=== PATIENT | female | born 1995 | race Caucasian/White ===

== ENCOUNTER → 2017-11-23 | Outpatient (CLI) | END | disposition home or self-care (01) ==

== ENCOUNTER 2018-04-04 11:55 | Outpatient (CLI) | payer BC, OTHER ==
[~2018-04-04] VITALS: Ht 157.5 cm; Wt 67.8 kg
[2018-04-04 12:07] VITALS: Ht 157.5 cm; Wt 67.8 kg
[2018-04-04] MEDS ORDERED: PREN-93 PO (12:07)
[2018-04-04 12:08] VITALS: BP 115/66; PULSE 88; RESP 18
[2018-04-04] MEDS ORDERED: ONDANSETRON 4 MG INJ IV PRN (12:30)
[2018-04-04] MEDS ORDERED: TERBUTALINE 1 MG/ML INJ SC ONE (12:30)
[2018-04-04] MEDS ORDERED: LOPERAMIDE 2 MG CAP PO PRN (12:30)
[2018-04-04] MEDS ORDERED: LOPERAMIDE 2 MG CAP PO ONE (12:30)
[2018-04-04] MEDS ORDERED: DEXTROSE 5%-0.45% NACL 1,000 ML IV SCH (12:30)
--- NOTE | 2018-04-04 15:55 | PN ---
Triage Information Date/Time April 04, 2018 Reason for visit: Patient admitted complaining of 1 day history of nausea vomiting and diarrhea which apparently happened after ingestion of strange food also complaining of minimal uterine contractions Weeks of Gestation 27 weeks and 6 days /Para 1 para 0 Diabetes: none Objective Vital Signs Date Temp Pulse Resp B/P (MAP) Pulse Ox O2 O2 Flow FiO2 Time Delivery Rate 04/04/18 98.2 88 18 115/66 Room Air 12:08 (82) Heart Rate: 150's Heart Rate Comments Reactive Contractions: 6-10 Minutes Apart Exam Cervix appeared long and closed Results/Medications Result Diagram: 04/04/18 1249 04/04/18 1249 Results 24 hrs Laboratory Tests Test 04/04/18 12:00 04/04/18 12:49 Urine Color YELLOW Urine Clarity SLIGHTLY CLOUDY A Urine pH 5.0 Urine Specific [place] 1.028 Urine Ketones NEGATIVE Urine Nitrite NEGATIVE Urine Bilirubin NEGATIVE Urine Urobilinogen NEGATIVE Urine Leukocyte Esterase NEGATIVE Urine Microscopic RBC 1 Urine Microscopic WBC 2 Urine Squamous Epithelial Cells FEW Urine Mucus MODERATE Urine Hemoglobin NEGATIVE Urine Glucose NEGATIVE Urine Total Protein 1+ H White Blood Count 10.3 Red Blood Count 3.92 L Hemoglobin 12.2 Hematocrit 35.0 L Mean Corpuscular Volume 89.3 Mean Corpuscular Hemoglobin 31.1 Mean Corpuscular Hemoglobin Concent 34.9 Red Cell Distribution Width 12.8 Platelet Count 199 Mean Platelet Volume 10.5 H Immature Granulocytes % 0.500 H Neutrophils % 84.5 H Lymphocytes % 7.6 L Monocytes % 7.0 Eosinophils % 0.3 Basophils % 0.1 Nucleated Red Blood Cells % 0.0 Immature Granulocytes # 0.050 H Neutrophils # 8.7 H Lymphocytes # 0.8 Monocytes # 0.7 Eosinophils # 0.0 Basophils # 0.0 Nucleated Red Blood Cells # 0.0 Sodium Level 134 L Potassium Level 3.7 Chloride Level 103 Carbon Dioxide Level 22 Anion Gap 9 Blood Urea Nitrogen 10 Creatinine 0.48 Est Glomerular Filtrat Rate mL/min > 60 Glucose Level 74 Calcium Level 8.9 Total Bilirubin 0.4 Direct Bilirubin 0.00 Indirect Bilirubin 0.4 Aspartate Amino Transf (AST/SGOT) 19 Alanine Aminotransferase (ALT/SGPT) 10 L Alkaline Phosphatase 113 Total Protein 7.1 Albumin 3.8 Globulin 3.30 H Albumin/Globulin Ratio 1.15 Medications Current Medications Dextrose/Sodium Chloride 1,000 ml @ 150 mls/hr Q6H40M IV Last administered on 04/04/18at 13:00; Admin Dose 150 MLS/HR; Start 04/04/18 at 12:30 Ondansetron HCl (Zofran Inj) 4 mg Q6H PRN IV NAUSEA AND/OR VOMITING; Start 04/04/18 at 12:30 Loperamide HCl (Imodium Cap) 2 mg QID PRN PO DIARRHEA; Start 04/04/18 at 12:30 Imaging Results 1. Single live intrauterine fetus, cephalic presentation, unchanged. The heart rate is 148 bpm. 2. Posterior placenta, grade 1, no previa or abruptio is evident. 3. Amniotic fluid index 14.2 cm. 4. The cervix is closed and measures 3.4 cm in length. 5. Biophysical profile score: 8/8. 1. Single live intrauterine fetus, cephalic presentation. 2. Posterior placenta, grade 1, no previa or abruptio is evident. 3. Estimated age by ultrasound: 29 weeks 3 days plus or minus 2 weeks. The estimated weight is 1201 g. The EFW falls at 54%. There has been adequate growth since the previous scan. The estimated date of delivery based on today's sonogram is 06/17/2018. Disposition: Discharge Assessment/Plan After almost a liter of IV hydration receiving Zofran and Imodium patient's symptoms were totally disappeared Was discharged home and recommended to refer back to OB triage in case there is a recurrence of symptoms PHILIPPE DIXON MD Apr 04, 2018 15:55
--- NOTE | 2018-04-04 16:10 | TRIAGE ---
OB Triage Datetime Report Generated by CPN: 04/04/2018 16:10 Datetime: 04/04/2018 15:00 Stage of : OB Triage Maternal Assessment Level of Consciousness: Fully Conscious Labor Evaluation Frequency: NONE Monitor Mode: External Resting Tone [place]: Relaxed Heart Rate FHR Baseline Rate: 145 Monitor Mode: External US Variability: Moderate 6-25 bpm Accelerations: 15X15 Decelerations: None Category: Category I Pain Assessment Pain Scale: 0 Pain Goal: 3 Vaginal Exam Membrane Status: Intact Vaginal Bleeding: None Datetime: 04/04/2018 14:00 Stage of : OB Triage Maternal Assessment Level of Consciousness: Fully Conscious Labor Evaluation Frequency: OCCASIONAL Monitor Mode: External Duration (sec)2399: 30-50 Quality: Mild Resting Tone [place]: Relaxed Heart Rate FHR Baseline Rate: 145 Monitor Mode: External US Variability: Moderate 6-25 bpm Accelerations: 15X15 Decelerations: None Category: Category I Pain Assessment Pain Scale: 0 Pain Goal: 3 Vaginal Exam Membrane Status: Intact Vaginal Bleeding: None Datetime: 04/04/2018 13:00 Stage of : OB Triage Maternal Assessment Level of Consciousness: Fully Conscious Labor Evaluation Frequency: IRREGULAR Monitor Mode: External Duration (sec)2399: 30 Quality: Mild Resting Tone [place]: Relaxed Heart Rate FHR Baseline Rate: 145 Monitor Mode: External US Variability: Moderate 6-25 bpm Accelerations: 15X15 Decelerations: None Category: Category I Pain Assessment Pain Scale: 0 Pain Goal: 3 Vaginal Exam Membrane Status: Intact Vaginal Bleeding: None Datetime: 04/04/2018 12:04 Assessment Type: Triage Maternal Assessment Level of Consciousness: Fully Conscious DTR's/Clonus: DTRs 2+; No Clonus Headache: Denies Blurred Vision: No Respiratory Effort: Unlabored; Regular Rhythm; Equal Expansion Breath Sounds, Left: Clear and Equal Breath Sounds, Right: Clear and Equal Nausea/Vomiting: Denies RUQ Epigastric Pain: Denies Lower Extremities Edema: None Degree: None Upper Extremities Edema: None Degree: None Facial Edema: None Fall Risk Assessment History of Falling: (0) No Secondary Diagnosis: (0) No Ambulatory Aid: (0) Bedrest/Nurse Assist IV Therapy: (0) No Gait: (0) Normal/Bedrest/Immobile Mental Status: (0) Oriented to Own Ability Fall Score: 0 Fall Risk Score Definition: No Risk: No action required Datetime: 04/04/2018 12:02 Time of Arrival: 04/04/2018 11:48 EGA: 27.6 Arrived By: Ambulatory Arrived From: Home Chief Complaint: PT. HERE C/O N/V/D Movement: Present Contractions: Denies/Absent Rupture of Membranes: Denies Vaginal Bleeding: None Vaginal Discharge: Denies Recent Sexual Intercouse: Denies Abdominal Trauma: Not Applicable Patient Complaints: Nausea; Vomiting Time Provider Notified: 04/04/2018 12:15 Provider Notified: CONNIE Initial Plan: CBC/CMP/UA/TERB/CVL/BPP/ZOFRAN/IV HYDRATION/ Datetime: 04/04/2018 12:01 Monitor Mode: External Monitor Mode: External US
== END 2018-04-04 16:00 | disposition home or self-care (01) ==
LOC: L-D 11:55 → OBT 11:55
PROVIDERS: ATTEND Obstetrics & Gynecology
DX: O21.0 Mild hyperemesis gravidarum (principal); O62.9 Abnormality of forces of labor, unspecified; Z3A.27 27 weeks gestation of pregnancy
CPT/HCPCS: 36415; 76815; 76817; 76818; 80053; 81001; 85025; 96360; 96361; 96372; J3105; J7042; Z7500; Z7610; G0463

== ENCOUNTER 2018-06-27 02:25 | Outpatient (CLI) | payer OTHER ==
[~2018-06-27] VITALS: Ht 157.5 cm; Wt 76.3 kg
[~2018-06-27 02:25] MED LIST: PREN-93 PO
[2018-06-27 02:38] VITALS: BP 113/61; PULSE 61
[2018-06-27 03:02] VITALS: Ht 157.5 cm; Wt 76.3 kg
--- NOTE | 2018-06-27 03:56 | PN ---
Triage Information Date/Time Reason for visit: Uterine contractions Weeks of Gestation Patient is a 22-year-old 1 para 0 at 39 weeks and 6 days of gestation with estimated date of delivery June 28, 2018 Patient presents with chief complaint of uterine contractions She reports positive movement, denies vaginal bleeding or leaking fluid /Para 1 para 0 Diabetes: none Hypertention: none Objective Vital Signs Date Temp Pulse Resp B/P (MAP) Pulse Ox O2 O2 Flow FiO2 Time Delivery Rate 06/27/18 97.9 61 113/61 Room Air 02:38 (78) Heart Rate: 140's Heart Rate Comments heart rate tracing category 1 Contractions: < 5 Minutes Apart Exam Cervix closed per nurse Results/Medications Imaging Results PROCEDURE: US OB biophysical profile. CLINICAL INDICATION: well-being TECHNIQUE: Multiple sonographic images of the pelvis were obtained. The images were reviewed on a PACS workstation. COMPARISON: US 06/15/2018; US PELVIS 04/04/2018 FINDINGS: Single live intrauterine gestation. YESI = 10.02 cm. Cardiac activity is present with 143 beats per minute. Cephalic presentation. Placental location is right lateral, grade III. Biophysical profile as follows: movement 2/2 tone 2/2 breathing 2/2 YESI 2/2 Total 10/20 IMPRESSION: Biophysical profile 10/20. RPTAT: [facility] Physician Andrews Time Electronically viewed and signed by Physician Andrews on 06/27/2018 04:13 xB/ CC: PHILIPPE DIXON MD [phone] Disposition: Discharge Assessment/Plan kick count instructions were given Labor precautions were given Patient instructed to return tomorrow June 28, 2018 for repeat NST and BPP Patient is planned for induction on 06/30/2018 Copies To: CC: PHILIPPE DIXON MD ; BECKY MORATAYA MD Jun 27, 2018 03:56
[2018-06-27] MEDS ORDERED: FER325 PO (04:17)
--- NOTE | 2018-06-27 04:40 | TRIAGE ---
OB Triage Datetime Report Generated by CPN: 06/27/2018 04:39 Datetime: 06/27/2018 04:20 Labor Evaluation Frequency: irregular Monitor Mode: External Duration (sec)2399: 60-110 Quality: Mild Pattern: Normal: <= 5 Contractions in 10 Minutes Resting Tone [place]: Relaxed Heart Rate FHR Baseline Rate: 115 Variability: Moderate 6-25 bpm Accelerations: 15X15 Decelerations: None Category: Category I Pain Assessment Pain Scale: 5 Pain Presence: Intermittent Pain Type: Contraction Pain Location: Abdomen; Back Pain Relief Measures: Comfort Measures Pain Assessment Comments: no change in pain level Datetime: 06/27/2018 03:23 Labor Evaluation Frequency: 3-7 Monitor Mode: External Duration (sec)2399: 60-110 Quality: Mild Pattern: Normal: <= 5 Contractions in 10 Minutes Resting Tone [place]: Relaxed Heart Rate FHR Baseline Rate: 115 Monitor Mode: External US Variability: Moderate 6-25 bpm Accelerations: 15X15 Decelerations: None Category: Category I Datetime: 06/27/2018 03:15 Vaginal Exam Dilatation (cms): 0.0 Effacement (%): 0 Station: -2 Exam By: Miquel HERNANDEZTRISTA Membrane Status: Intact Vaginal Bleeding: None Cervix, Position: Posterior Presentation 'A': Cephalic Datetime: 06/27/2018 03:04 Time of Arrival: 06/27/2018 02:22 EGA: 39.6 Arrived From: Home Chief Complaint: UC'S SINCE 06/26 LOSS MUCUS PLUG Movement: Present Contractions: Irregular Time Contractions Began: 06/26/2018 23:00 Rupture of Membranes: Denies Vaginal Bleeding: None Vaginal Discharge: Present Recent Sexual Intercouse: Denies Abdominal Trauma: Not Applicable Patient Complaints: Contractions Time Provider Notified: 06/27/2018 03:24 Provider Notified: Cristian Initial Plan: VS, EFM, SVE, CALL OB BPP w/YESI Datetime: 06/27/2018 02:53 Stage of : OB Triage Maternal Assessment Level of Consciousness: Fully Conscious DTR's/Clonus: DTRs 2+; No Clonus Headache: Denies Blurred Vision: No Respiratory Effort: Unlabored; Regular Rhythm; Equal Expansion Breath Sounds, Left: Clear and Equal Breath Sounds, Right: Clear and Equal Nausea/Vomiting: Denies RUQ Epigastric Pain: Denies Lower Extremities Edema: None Degree: None Upper Extremities Edema: None Degree: None Facial Edema: None Temperature Route: Oral Fall Risk Assessment History of Falling: (0) No Secondary Diagnosis: (0) No Ambulatory Aid: (0) Bedrest/Nurse Assist IV Therapy: (0) No Gait: (0) Normal/Bedrest/Immobile Mental Status: (0) Oriented to Own Ability Fall Score: 0 Fall Risk Score Definition: No Risk: No action required Pain Assessment Pain Scale: 5 Pain Presence: Intermittent Pain Type: Contraction Pain Location: Abdomen; Back Pain Relief Measures: Comfort Measures Datetime: 06/27/2018 02:40 Stage of : OB Triage Monitor Mode: External Monitor Mode: External US Datetime: 06/27/2018 02:38 Stage of : OB Triage Datetime: 04/04/2018 16:00 Stage of : OB Triage Maternal Assessment Level of Consciousness: Fully Conscious Labor Evaluation Frequency: 1UC/HR Monitor Mode: External Duration (sec)2399: 60 Quality: Mild Resting Tone [place]: Relaxed Heart Rate FHR Baseline Rate: 145 Monitor Mode: External US Variability: Moderate 6-25 bpm Accelerations: 15X15 Decelerations: None Category: Category I Pain Assessment Pain Scale: 0 Pain Goal: 3 Membrane Status: Intact Vaginal Bleeding: None Datetime: 04/04/2018 12:04 Fall Score: 0 Fall Risk Score Definition: No Risk: No action required Datetime: 04/04/2018 12:02 EGA: 27.6
== END 2018-06-27 04:28 | disposition home or self-care (01) ==
LOC: OBT 02:25 → L-D 02:25 → OBT 04:28
PROVIDERS: ATTEND Obstetrics & Gynecology
DX: O62.9 Abnormality of forces of labor, unspecified (principal); Z3A.39 39 weeks gestation of pregnancy
CPT/HCPCS: 76818; Z7500; G0463

== ENCOUNTER 2018-06-27 20:23 | Inpatient (IN) | payer OTHER ==
[~2018-06-27] VITALS: Ht 157.5 cm; Wt 75.0 kg
[~2018-06-27 20:23] MED LIST changes: +FER325 PO
[2018-06-27 20:41] VITALS: Ht 157.5 cm; Wt 75.0 kg
[2018-06-27 20:42] VITALS: BP 129/69; PULSE 81; RESP 18
[2018-06-27] MEDS ORDERED: IBUPROFEN 600 MG TAB PO PRN (21:00)
[2018-06-27] MEDS ORDERED: MISOPROSTOL 200 MCG TAB PR PRN (21:00)
[2018-06-27] MEDS ORDERED: CARBOPROST 250 MCG INJ IM PRN (21:00)
[2018-06-27] MEDS ORDERED: OXYTOCIN 30 UNITS/LR 500 ML IV SCH ×2 (21:00)
[2018-06-27] MEDS ORDERED: LIDOCAINE 1% (MPF) 30 ML INJ INJ PRN (21:00)
[2018-06-27] MEDS ORDERED: METHYLERGONOVINE 0.2 MG INJ IM PRN (21:00)
[2018-06-27] MEDS ORDERED: BUTORPHANOL 2 MG INJ IV PRN (21:00)
[2018-06-27] MEDS ORDERED: BUTORPHANOL 1 MG INJ IV PRN (21:00)
[2018-06-27] MEDS ORDERED: OXYTOCIN 30 UNITS/LR 500 ML IV PRN ×2 (21:00)
--- NOTE | 2018-06-27 21:03 | TRIAGE ---
OB Triage Datetime Report Generated by CPN: 06/27/2018 21:03 Datetime: 06/27/2018 20:35 Stage of : OB Triage Labor Evaluation Frequency: 2-3 Monitor Mode: External Duration (sec)2399: 40-80 Pattern: Normal: <= 5 Contractions in 10 Minutes Resting Tone [place]: Relaxed Heart Rate FHR Baseline Rate: 130 Monitor Mode: External US Variability: Moderate 6-25 bpm Accelerations: 15X15 Decelerations: None Category: Category I Vaginal Exam Dilatation (cms): 3.0 Effacement (%): 90 Station: -1 Exam By: GKgagandeepman, RN Membrane Status: Bulging Datetime: 06/27/2018 20:29 Stage of : OB Triage Assessment Type: Triage Maternal Assessment Level of Consciousness: Fully Conscious DTR's/Clonus: DTRs 2+; No Clonus Headache: Denies Blurred Vision: No Respiratory Effort: Unlabored; Regular Rhythm; Equal Expansion Breath Sounds, Left: Clear and Equal Breath Sounds, Right: Clear and Equal Nausea/Vomiting: Denies RUQ Epigastric Pain: Denies Lower Extremities Edema: None Degree: None Upper Extremities Edema: None Degree: None Facial Edema: None Temperature Route: Oral Fall Risk Assessment History of Falling: (0) No Secondary Diagnosis: (0) No Ambulatory Aid: (0) Bedrest/Nurse Assist IV Therapy: (0) No Gait: (0) Normal/Bedrest/Immobile Mental Status: (0) Oriented to Own Ability Fall Score: 0 Fall Risk Score Definition: No Risk: No action required Monitor Mode: External Monitor Mode: External US Pain Assessment Pain Scale: 9 Pain Presence: Intermittent Pain Type: Contraction Pain Location: Abdomen; Back Pain Goal: 2 Pain Relief Measures: Comfort Measures Datetime: 06/27/2018 20:28 Time of Arrival: 06/27/2018 20:13 EGA: 39.6 Arrived By: Ambulatory Arrived From: Home Movement: Present Contractions: Regular Time Contractions Began: 06/27/2018 06:00 Contractions: 3-5 Rupture of Membranes: Denies Vaginal Bleeding: Normal Show Vaginal Discharge: Denies Recent Sexual Intercouse: Denies Abdominal Trauma: Not Applicable Patient Complaints: Contractions Time Provider Notified: 06/27/2018 20:54 Provider Notified: Reiche Initial Plan: VS, EFM, SVE Datetime: 06/27/2018 03:04 EGA: 39.6 Datetime: 06/27/2018 02:53 Fall Score: 0 Fall Risk Score Definition: No Risk: No action required Datetime: 04/04/2018 12:04 Fall Score: 0 Fall Risk Score Definition: No Risk: No action required Datetime: 04/04/2018 12:02 EGA: 27.6
[2018-06-27 21:22] VITALS: BP 121/77; PULSE 73; RESP 19
[2018-06-27] MEDS ORDERED: LACTATED RINGER'S 1,000 ML IV PRN (21:28)
[2018-06-27] MEDS ORDERED: MINERAL OIL LIGHT 10 ML VIAL TOP PRN (21:30)
[2018-06-27] MEDS: LACTATED RINGER'S 1,000 ML IV SCH (22:17)
--- NOTE | 2018-06-27 22:37 | PREAC ---
Date/Time of Note Date/Time of Note DATE: 06/27/18 TIME: 22:35 Anesthesia Eval and Record Evaluation Time Pre-Procedure Interview DATE: 06/27/18 TIME: 22:35 Age 22 Sex female NPO: 8 hrs Preoperative diagnosis IUP Planned procedure L&D Epidural Past Medical History Past Medical History: None Surgery & Anesthesia Issues No known issue Meds Anticoagulation: No Beta [place] within 24 hr: No Reason Beta Lima not given: Pt. not on B-Lima Reported Medications Ferrous Sulfate* (Ferrous Sulfate*) 325 Mg Tabec, 325 MG PO DAILY, TAB 06/27/18 Vit No.124/Iron/FA ( Vitamin Tablet) 1 Each Tablet, 1 EACH PO DAILY, TAB 04/04/18 Current Medications Butorphanol Tartrate (Stadol) 1 mg Q2H PRN IV .PAIN; Start 06/27/18 at 21:00 Butorphanol Tartrate (Stadol) 2 mg Q2H PRN IV .PAIN; Start 06/27/18 at 21:00 Lidocaine (Xylocaine 1% (Mpf)) 30 ml ONCE PRN INJ .EPISIOTOMY; Start 06/27/18 at 21:00 Oxytocin/Lactated Ringer's 500 ml @ 500 mls/hr ONCE POST IV ; Start 06/27/18 at 21:00 Oxytocin/Lactated Ringer's 500 ml @ 125 mls/hr POST IV ; Start 06/27/18 at 21:00 Ibuprofen (Motrin) 600 mg ONCE PRN PO .PAIN 1-5; Start 06/27/18 at 21:00 Oxytocin/Lactated Ringer's 500 ml @ 0 mls/hr ONCE PRN IV .VAGINAL BLEEDING; Start 06/27/18 at 21:00 Methylergonovine Maleate (Methergine) 0.2 mg ONCE PRN IM .VAGINAL BLEEDING; Start 06/27/18 at 21:00 Carboprost Tromethamine (Hemabate) 250 mcg ONCE PRN IM .VAGINAL BLEEDING; Start 06/27/18 at 21:00 Misoprostol (Cytotec) 1,000 mcg ONCE PRN MO .VAGINAL BLEEDING; Start 06/27/18 at 21:00 Oxytocin/Lactated Ringer's 500 ml @ 0 mls/hr FOR AUGMENTATION PRN IV labor augmentation; Start 06/27/18 at 21:00 Lactated Ringer's 1,000 ml @ 125 mls/hr Q8H IV Last administered on 06/27/18at 22:17; Admin Dose 125 MLS/HR; Start 06/27/18 at 21:28 Lactated Ringer's 1,000 ml @ 2,000 mls/hr Q30M PRN IV .ANESTHESIA Last administered on 06/27/18at 21:49; Admin Dose 2,000 MLS/HR; Start 06/27/18 at 21:28 Mineral Oil (Muri-Lube) 10 ml PRN PRN TOP DELIVERY LUBRICATION; Start 06/27/18 at 21:30 Meds reviewed: Yes Allergies Coded Allergies: No Known Allergy (Unverified , 06/27/18) Allergies Reviewed: Yes Labs/Studies Labs Reviewed: Reviewed by anesthesiologist Result Diagram: 06/27/182114 Laboratory Tests 06/27/18 21:15 Blood Bank Test 06/27/18 21:15 Blood Type O POSITIVE Rh Immune Globulin Candidate NO test: Positive Studies: ECG Pre-procedure Exam Last vitals Vital Signs Date Temp Pulse Resp B/P (MAP) Pulse Ox O2 O2 Flow FiO2 Time Delivery Rate 06/27/18 98.1 73 19 121/77 Room Air 21:22 (92) Airway: Adequate mouth opening, Adequate thyromental dist Mallampati: Mallampati II Teeth: Normal Lung: Normal Heart: Normal ASA Physical Status ASA physical status: 2 Emergency: None Planned Anesthetic Neuraxial: Epidural Planned Pain Management Epidural Pre-operative Attestations Prior to commencing anesthesia and surgery, the patient was re-evaluated, there was verification of: *The patient's identity *The results of appropriate recent lab work and preoperative vital signs *The above evaluation not changing prior to induction *Anesthetic plan, risk benefits, alternative and complications discussed with patient/family; questions answered; patient/family understands, accepts and wishes to proceed. LUIS MANUEL MONTANA MD Jun 27, 2018 22:37
[2018-06-27] MEDS ORDERED: FENTAnyl 2MCG/ML-ROPIV 0.2% 100 ML ONE (22:39)
[2018-06-27] MEDS ORDERED: ONDANSETRON 4 MG INJ IV PRN (23:00)
[2018-06-27] MEDS ORDERED: NALOXONE (0.4 MG/ML) INJ IV PRN (23:00)
[2018-06-27] MEDS ORDERED: DIPHENHYDRAMINE 50 MG INJ IV PRN (23:00)
[2018-06-28] MEDS: LACTATED RINGER'S 1,000 ML IV SCH ×4 (02:57→17:19)
[2018-06-28] MEDS: FENTAnyl 2MCG/ML-ROPIV 0.2% 100 ML BAG EPI SCH ×2 (05:43→11:42)
[2018-06-28] MEDS ORDERED: TERBUTALINE 1 ML ONE (06:49)
[2018-06-28] MEDS ORDERED: TERBUTALINE 1 MG/ML INJ SC ONE (07:00)
--- NOTE | 2018-06-28 19:45 | HP ---
Date/Time of Note Date/Time of Note DATE: 06/28/18 TIME: 19:41 OB - History Hx of Present Free Text/Dictation 22-year-old female 1 para 0 at 40 weeks gestation admitted complaining of onset of uterine contractions started at 6 PM 06/27/2018 Denies rupture of membrane no vaginal bleeding Chief Complaint: Labor pains Last Menstrual Period: Sep 23, 2017 Estimated Due Date: Jun 28, 2018 : 1 Para: 0 Care: Good Care Ultrasounds: Normal mid trimester US Obstetrical Complications: None Medical Complications: None Past Family/Social History * Past Medical, Surgical, Family and Obstetric Histories reviewed from chart. Blood Type: O+ Rubella: immune RPR/VDRL: Negative GBS Status: Negative HBsAG: Negative OB Admission Exam Vital Signs Vital Signs Vital Signs Date Temp Pulse Resp B/P (MAP) Pulse Ox O2 O2 Flow FiO2 Time Delivery Rate 06/27/18 98.1 73 19 121/77 Room Air 21:22 (92) Physical Exam HEENT: WNL Heart: Rhythm Normal Lungs: Clear, Equal Abdomen: WNL Extremities: Normal Reflexes: Normal Cervical Dilatation: 3cm Effacement: 75% Station: -2 Membranes: Intact Heart Rate: 140's Accelerations: Accelerations Present Decelerations: No Decelerations Varibility: Moderate Contractions on Admission: < 5 Minutes Apart Date/Time Contractions Began: June 27, 2018 at 6 PM Frequency of Contractions: Every to 3 minutes Duration: Over 1 minute Intensity: Moderate Last 72 hours Lab Results CBC & BMP 06/27/18 21:15 OB Assessment/Plan Other Assessment: Term gestation in labor pains Other plan: Proceed with spontaneous labor PHILIPPE DIXON MD Jun 28, 2018 19:45
[2018-06-28] MEDS ORDERED: KETOROLAC 30 MG INJ IV STA (19:49)
--- NOTE | 2018-06-28 19:49 | LDN ---
Date/Time of Note Date/Time of Note DATE: 06/28/18 TIME: 19:45 Delivery Summary Normal spontaneous vaginal delivery of a viable over midline episiotomy Weeks of Gestation 40 Placenta Delivered: Spontaneously, Intact & Complete Meconium: none Episiotomy: Yes Indication for episiotomy Variable deceleration of heart tones and bradycardic episodes Perineal laceration: 4 Laceration repair: Fourth degree perineal extension was repaired as follows Anal mucosa and serosa with interrupted stitches of 2-0 Vicryl Anal sphincter with 4 stitches of anterior-posterior superior-inferior of 2-0 Vicryl including the capsule Levator ani was reapproximated and admitted using running sutures of 2-0 Vicryl avoiding rectal and anal mucosa Episiotomy was then repaired in layers using 2-0 Vicryl on the deeper layers and 2-0 chromic and superficial layer Anesthesia type: Epidural Estimated blood loss: 300 Sponge & Needle done & correct: Yes All needle counts correct: Yes Any foreign bodies felt in the: No Infant Delivery Information Sex Sex: male Apgars 1 Minute: 9 5 Minute: 8 10 Minute: 9 Suctioning Nose & mouth suctioned at yunior: Yes Delee suction performed: No Umbilical Cord Umbilical cord with: 3 Vessels Cord presentations: nuchal cord Nuchal cord present X: 1 Cord Blood was obtained: Yes Mother & Baby Disposition Disposition Mom & Baby to Maternity; Good: Yes (Mother and baby were recovered in good condition) Mom transferred to: Other (Maternity) Baby to NICU: No PHILIPPE DIXON MD Jun 28, 2018 19:49
[2018-06-28] MEDS ORDERED: CEFAZOLIN 2 GM/50 ML (PMX) 50 ML IVPB ONE (20:00)
[2018-06-28 21:15] VITALS: BP 119/70; PULSE 67; RESP 18
[2018-06-28] MEDS ORDERED: MISOPROSTOL 200 MCG TAB PR PRN (22:00)
[2018-06-28] MEDS ORDERED: BENZOCAINE 20% 56 ML SPRAY TOP PRN (22:00)
[2018-06-28] MEDS ORDERED: OXYTOCIN 30 UNITS/LR 500 ML IV PRN (22:00)
[2018-06-28] MEDS ORDERED: DIBUCAINE 1% 30 GM OINT TOP PRN (22:00)
[2018-06-28] MEDS ORDERED: LANOLIN HPA 1 PKT TOP PRN (22:00)
[2018-06-28] MEDS ORDERED: HYDROCODONE/APAP (5/325) TAB PO PRN (22:00)
[2018-06-28] MEDS ORDERED: CARBOPROST 250 MCG INJ IM PRN (22:00)
[2018-06-28] MEDS ORDERED: WITCH HAZEL/GLYCERIN PAD PR PRN (22:00)
[2018-06-28] MEDS ORDERED: ZOLPIDEM 5 MG TAB PO PRN (22:00)
[2018-06-28] MEDS ORDERED: METHYLERGONOVINE 0.2 MG INJ IM PRN (22:00)
[2018-06-28] MEDS: HYDROCODONE/APAP (5/325) TAB PO PRN (22:02)
[2018-06-29] MEDS ORDERED: CEPHALEXIN 500 MG CAP PO SCH
[2018-06-29] MEDS: LACTATED RINGER'S 1,000 ML IV* SCH ×2 (00:07→05:31)
[2018-06-29] MEDS ORDERED: DIPHENHYDRAMINE 50 MG INJ IM ONE (02:00)
[2018-06-29 03:17] VITALS: BP 104/56; RESP 18
[2018-06-29] MEDS: HYDROCODONE/APAP (5/325) TAB PO PRN ×3 (04:07→23:25)
[2018-06-29] MEDS: IBUPROFEN 600 MG TAB PO SCH ×5 (05:42→23:54)
[2018-06-29 08:10] VITALS: BP 116/64; PULSE 93; RESP 20
--- NOTE | 2018-06-29 08:42 | PAC ---
Date/Time of Note Date/Time of Note DATE: 06/29/18 TIME: 08:41 Post-Anesthesia Notes Post-Anesthesia Note Last documented vital signs Vital Signs Date Temp Pulse Resp B/P (MAP) Pulse Ox O2 O2 Flow FiO2 Time Delivery Rate 06/29/18 98.6 93 20 116/64 Room Air 08:10 (81) Activity: WNL Respiratory function: WNL Cardiovascular function: WNL Mental status: Baseline Pain reasonably controlled: Yes Hydration appropriate: Yes Nausea/Vomiting absent: Yes Comments BP:120/65, P:78, Spo2:100%, T:98,9 LUIS MANUEL MONTANA MD Jun 29, 2018 08:42
[2018-06-29] MEDS: MAGNESIUM HYDROXIDE 30ML CUP PO SCH ×2 (09:08→21:00)
[2018-06-29] MEDS: NITROFURANTOIN (SR) 100 MG CAP PO SCH ×2 (09:08→21:25)
[2018-06-29] MEDS: SENNA/DOCUSATE NA (8.6MG/50MG) TAB PO SCH ×2 (09:09→21:00)
[2018-06-29] MEDS: ESTROGENS CONJUGATED 42.5 GM VAG CR TOP SCH ×2 (09:09→21:25)
[2018-06-29 11:30] VITALS: BP 112/61; PULSE 72; RESP 16
--- NOTE | 2018-06-29 14:20 | PD.PPDC ---
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 Provider Information Physician Information 22-year-old female had vaginal delivery Diagnosis [id number] Final Diagnosis: Cdief1o Status post vaginal delivery Condition [id number] Patient Condition: Nyuib9s Good Diet Uabzi8Ei Diet: Solik5o Resume Regular Diet Activity/Restrictions Mtdcl3Is Activity: Megqj3s Normal Activity May Shower [id number] Restrictions: Vntlj2h No Exercising Nothing in the Vagina [id number] Return to Work or School: [id number] July 18, 2018 Follow-up Follow-up with Physician: 2, 4, Week/Weeks (In clinic) Return to clinic for [id number] OB Instructions: Avnlw5l Breast Tenderness Depression Comment: Pelvic rest for 6 weeks PHILIPPE DIXON MD Jun 29, 2018 14:20
[2018-06-29] MEDS ORDERED: IBUP-1542 PO (14:21)
--- NOTE | 2018-06-29 14:24 | DS ---
Date/Time of Note Date/Time of Note Home today or next day DATE: 06/29/18 TIME: 14:22 Obstetrical Discharge Record Final Diagnosis Final Diagnosis: Term delivered Other Final Diagnosis Status post vaginal delivery Vaginal Delivery Obstetrical Delivery: Spontaneous, Episiotomy, Repaired, Laceration, Repaired Condition on Discharge Physical Assessment Last Vitals: See nurse's notes Voiding: Yes Bowel Movement: Yes Breast: Soft, non-tender, Filling Fundus: Firm Abdomen and Incision: Abdomen is soft with present bowel sounds Fundus is firm Episiotomy: Episiotomy and perineal laceration are healing well and appears clean Calf Tenderness: No Patient Condition: Good PHILIPPE DIXON MD Jun 29, 2018 14:23
[2018-06-29 16:15] VITALS: BP_SYST 100; BP_SYST 122; BP_DIAS 59; PULSE 62; PULSE 85; RESP 20
[2018-06-29 19:45] VITALS: BP 120/66; PULSE 88; RESP 18
[2018-06-30 04:16] VITALS: BP 113/61; PULSE 81; RESP 18
[2018-06-30] MEDS: IBUPROFEN 600 MG TAB PO SCH ×3 (05:42→17:36)
[2018-06-30 08:45] VITALS: BP 131/64; PULSE 111; RESP 20
[2018-06-30] MEDS ORDERED: DIPHTH/TET/ACEL PERTUSS (ADULT) 0.5 ML VIAL IM* ONE (09:00)
[2018-06-30] MEDS ORDERED: VARICELLA VACCINE LIVE/PF 1,350 UNIT/0.5 ML ML SC* ONE (09:00)
[2018-06-30] MEDS ORDERED: MEASLES,MUMPS,RUBELLA VACCINE INJ SC* ONE (09:00)
[2018-06-30] MEDS: MAGNESIUM HYDROXIDE 30ML CUP PO SCH (09:30)
[2018-06-30] MEDS: NITROFURANTOIN (SR) 100 MG CAP PO SCH (09:30)
[2018-06-30] MEDS: ESTROGENS CONJUGATED 42.5 GM VAG CR TOP SCH (09:31)
[2018-06-30] MEDS: SENNA/DOCUSATE NA (8.6MG/50MG) TAB PO SCH (09:34)
[2018-06-30 15:50] VITALS: BP 112/71; PULSE 88; RESP 16
[2018-06-30] MEDS ORDERED: UDMOM PO (17:28)
[2018-06-30] MEDS ORDERED: SENOKOTS PO (17:28)
--- NOTE | 2018-07-01 18:08 | DELSUM ---
Delivery Summary A-C Datetime Report Generated by CPN: 07/01/2018 18:08 DELIVERY PERSONNEL Concrete Mason: Sebunnya, Phoebe MATERNAL INFORMATION Delivery Anesthesia: Epidural Medications in Delivery: LR 500ML PITOCIN 30 UNITS Delivery QBL (ml): 300 Placenta Cultured: No Maternal Complications: None LABOR SUMMARY EDC: 06/28/2018 00:00 No. Babies in Womb: 1 Attempted: No Labor Anesthesia: Epidural LABOR INFORMATION Reason for Induction: Not Applicable Onset of Labor: 06/27/2018 18:00 Complete Dilatation: 06/28/2018 18:20 Oxytocin: N/A Group B Beta Strep: Negative Antibiotics # of Doses: 0 Steroids Given: None Reason Steroids Not Administered: Not Applicable MEMBRANES Membranes Rupture Method: Artificial Rupture of Membranes: 06/28/2018 14:17 Length of Rupture (hr): 4.67 Amniotic Fluid Color: Clear Amniotic Fluid Amount: Large Amniotic Fluid Odor: Normal STAGES OF LABOR Stage 1 hr: 24 Stage 1 min: 20 Stage 2 hr: 0 Stage 2 min: 37 Stage 3 hr: 0 Stage 3 min: 3 Total Time in Labor hr: 25 Total Time in Labor min: 0 VAGINAL DELIVERY Episiotomy: None Laceration Extension: Fourth Degree Laceration Type: Perineal Laceration Repair: Yes Initial Vag Sponge Count: 10 Final Vag Sponge Count: 10 Initial Vag Sharps Count: 6 Final Vag Sharps Count: 6 Sponge Count Correct: Yes; Vaginal Sweep Performed Sharps Count Correct: Yes BABY A INFORMATION Infant Delivery Date/Time: 06/28/2018 18:57 Method of Delivery: Vaginal Born in Route : No : N/A Forceps: N/A Vacuum Extraction: N/A Shoulder Dystocia : N/A SHOULDER DYSTOCIA BABY A Delivery Date/Time: 06/28/2018 18:57 PRESENTATION/POSITION BABY A Presentation: Cephalic Cephalic Presentation: Vertex Vertex Position: Left Occipital Anterior Breech Presentation: N/A PLACENTA INFORMATION BABY A Placenta Delivery Time : 06/28/2018 19:00 Placenta Method of Delivery: Spontaneous Placenta Status: Delivered SCORES BABY A Heart Rate 1 min: >100 bpm Resp Effort 1 min: Good Cry Reflex Irritability 1 min: Cough/Sneeze/Pulls Away Muscle Tone 1 min: Active Motion Color 1 min: Blue/Pale Resuscitation Effort 1 min: Tactile Stimulation; Oxygen SCORE 1 MIN: 8 Heart Rate 5 min: >100 bpm Resp Effort 5 min: Good Cry Reflex Irritability 5 min: Cough/Sneeze/Pulls Away Muscle Tone 5 min: Active Motion Color 5 min: Body [place], Extremit Blue SCORE 5 MIN: 9 INFORMATION BABY A Gestational Age at Delivery: 40.0 Gestational Status: Full Term- 39- 40.6 Weeks Infant Outcome : Liveborn Condition : Stable Sex: Male IDENTIFICATION/MEDS BABY A ID Band Number: [id number] ID Band Location: Right Leg; Left Arm Sensor Applied: Yes Sensor Number: [id number] Sensor Location : Cord Clamp Vitamin K Given : Not Given Erythromycin Given: Not Given WEIGHT/LENGTH BABY A Infant Birthweight (gm): 3700 Weight (lb): 8 Weight (oz): 3 Length (in): 20.25 Length (cm): 51.44 CORD INFORMATION BABY A No. Cord Vessels: 3 Nuchal Cord : Around Neck x1, Tight Nuchal Cord- Other: 0 True Knot: 0 Cord Blood Taken: Yes Banking/Donate Info: NONE Infant Suction: Mouth; Nose ASSESSMENT BABY A Complications: Extended Tachycardi; Multiple Late Decels; Multiple Variable Decels Physical Findings at Delivery: Within Normal Limits Physical Findings- Other: AMNIOINFUSION DONE FOR VARIABLES, STARTED AT 1600, 600 MLS OF NS GIVEN Respirations: Appears Normal Electrician Elevator Maintenance/ALS Called : No Care By: OK BEE Transferred To: Remains with Mother
== END 2018-06-30 18:07 | disposition home or self-care (01) | DRG 768 ==
LOC: OBT 20:23 → L-D 20:24 → OBT 20:55 → L-D 20:55 → PP1 06-28 21:12
PROVIDERS: ADMIT Obstetrics & Gynecology; ATTEND Obstetrics & Gynecology
PROC: 10E0XZZ Delivery of Products of Conception, External Approach (ICD-10-PCS; principal; 2018-06-28)
PROC: 0DQP0ZZ Repair Rectum, Open Approach (ICD-10-PCS; 2018-06-28)
PROC: 0W8NXZZ Division of Female Perineum, External Approach (ICD-10-PCS; 2018-06-28)
DX: O76 Abnormality in fetal heart rate and rhythm complicating labor and delivery (principal); Z37.0 Single live birth; O70.3 Fourth degree perineal laceration during delivery; O69.81X0 Labor and delivery complicated by cord around neck, without compression, not applicable or unspecified; Z3A.40 40 weeks gestation of pregnancy; Z23 Encounter for immunization
CPT/HCPCS: 62322; 76815; 85025; 85610; 85730; 86592; 86850; 86900; 86901; 87340; 90716; 99464; G0463; J0690; J1200; J2405; J2590; J3010; J3105; J7120